=== PATIENT | male | born 1975 | race African-American/Black ===

== ENCOUNTER 2020-09-05 03:37 | Emergency (ER) | payer OTHER, SELFPAY ==
--- NOTE | 2020-09-05 03:47 | ECG_ITS ---
Test Reason : SUB ABUSE Blood Pressure : / mmHG Vent. Rate : 071 BPM Atrial Rate : 071 BPM P-R Int : 120 ms QRS Dur : 090 ms QT Int : 402 ms P-R-T Axes : 049 013 029 degrees QTc Int : 436 ms Normal sinus rhythm Nonspecific T wave abnormality Abnormal ECG No previous ECGs available Referred By: Carol Lynch Electronically Signed By:KEVIN COLES MD
[2020-09-05 03:48] VITALS: BP 181/82; PULSE 76; RESP 20; TEMP 37.3; O2SAT 98; BMI 45.6
--- NOTE | 2020-09-05 04:01 | ED_ITS ---
HPI - General Adult General Chief complaint: ETOH/Substance Use Stated complaint: over medicated Time Seen by Provider: 09/05/20 03:47 Source: patient Mode of arrival: ambulatory History of Present Illness HPI narrative: 44-year-old male who presents with having sniffed 5-10 bags of heroin/day for 2 weeks as well as consuming alcohol and smoking [place] dust. Patient presents with concerns after having drank 3-1/2 caps of NyQuil as well as 3 large swallows. Otherwise, he denies any shortness of breath, chest pain/palpitations, dizziness or headaches. Related Data Allergies Allergy/AdvReac Type Severity Reaction Status Date / Time No Known Allergies Allergy Verified 09/05/20 03:55 [No Known Allergies*] Review of Systems Review of Systems: Pertinent positives and negatives as stated in HPI and 10 point review of systems is otherwise negative. PMFSH Past Medical History Source: nursing notes reviewed Medical History Alcohol abuse Hypertension Substance abuse Social History Social History Advance Directives: No Advance Directives Information Provided: No Physical Exam Vital Signs: Vital Signs: Last Vital Signs Temp 99.2 F 09/05/20 03:48 Pulse 76 09/05/20 03:48 Resp 20 09/05/20 03:48 BP 181/82 H 09/05/20 03:48 Pulse Ox 98 09/05/20 03:48 Body Mass Index 45.6 VITAL SIGNS: Reviewed. GENERAL: Well developed, well nourished, in no acute distress. HEAD: Normocephalic/atraumatic, EYES: PERRLA, EOMI OROPHARYNX: no oral lesions noted, posterior pharynx clear NECK: Supple, no adenopathy LUNGS: Normal breath sounds. No adventitious sounds or accessory muscle use. SpO2<98> CARDIOVASCULAR: Regular rate and rhythm without noted murmurs, no JVD or lower extremity edema. ABDOMEN: Soft, non-tender, non-distended with bowel sounds. NEUROLOGIC: Alert and oriented x 4. Strength and sensation to light touch were grossly intact x 4, no tremor. Course Course Course Narrative: This is a 44-year-old male with history and clinical presentat ion polysubstance use and will rule out acetaminophen toxicity given unknown amount of NyQuil consumed. 0447: Patient is requesting to leave and understands that the lab work has not come back knee and that due to the amount Tylenol that he ingested with a NyQuil it could cause liver complications with and he was encouraged to return if he has any worsening of symptoms as he continues to insist on leaving prior to that were being completed. All risks and benefits were discussed with him and he acknowledges them. Medical Decision Making Lab Data Result diagrams: 09/05/20 04:06 09/05/20 04:06 ECG Data Attestation: I personally reviewed and interpreted this ECG as follows: Prior ECG tracings: not available for review Interpretation: Normal sinus rhythm, HR-71, no acute evidence of ischemia, WI/QRS/QTC are within normal limits. Discharge Plan Discharge Clinical Impression: Substance abuse Accidental acetaminophen overdose Qualifiers: Encounter type: initial encounter Qualified Code(s): T39.1X1A - Poisoning by 4- Aminophenol derivatives, accidental (unintentional), initial encounter Patient Disposition: Left Against Medical Advice Additional Instructions: Do not hesitate to return to the emergency department should you develop any shortness of breath, chest pain, abdominal pain. Stand Alone Forms: Against Medical Advice
--- NOTE | 2020-09-05 04:23 | PC.NURSE ---
at bedside for primary eval.
[2020-09-05 04:28] LABS: Basophils Percent Auto 0.4 % (0-2); Eosinophils Absolute Auto 0.2 X10*3/uL (0.0-0.4); Eosinophils Percent Auto 2.6 % (0-4); Hematocrit 40.7 % (42-52); Hemoglobin 12.6 g/dl (14.0-18.0); Imm Gran Abs Auto 0.02 X10*3/uL (0.00-0.03); Imm Gran Pct Auto 0.2 % (0.0-0.4); Lymphocytes Absolute Auto 2.4 X10*3/uL (1.2-4.9); Lymphocytes Percent Auto 26.5 % (20-40); MANUAL DIFF FLAG NO; Mean Corpuscular Hemoglobin 26.1 pg (27.0-33.0); Mean Corpuscular Volume 84.3 fL (80-98); Mean Platelet Volume 10.9 fL (9.4-12.4); Monocytes Absolute Auto 0.8 X10*3/uL (0.1-1.2); Monocytes Percent Auto 8.8 % (2-11); Neutrophils Absolute Auto 5.5 X10*3/uL (2.0-8.3); Neutrophils Percent Auto 61.5 % (45-73); Platelet Count 240 X10*3/uL (160-400); Red Blood Count 4.83 X10*6/uL (4.60-5.80)
--- NOTE | 2020-09-05 04:47 | PC.NURSE ---
This RN at bedside to obtain urine sample. Pt states he is unable to provide urine sample at this time. Pt found to be on the phone with his suzie mother. Pt yelling and crying. After the conversation ended, pt requesting to leave immediately. This RN explaining to pt that his labs aren't back. Per pt, I need to leave, I need to leave right now. MD aware. Pt agreeable to signing out AMA.
[2020-09-05 04:48] LABS: Ethanol < 10 mg/dL
[2020-09-05 04:52] LABS: Acetaminophen LAB 3 mcg/mL (<30); Alanine Aminotransferase 18 U/L (0-40); Albumin Level 4.3 g/dL (3.5-5.0); Alkaline Phosphatase 86 U/L (39-117); Anion Gap 14 (12-20); Aspartate Amino Transferase 23 U/L (5-37); Bilirubin Total 0.3 mg/dL (0.0-1.0); Blood Urea Nitrogen 17 mg/dL (9-16); Calcium 8.8 mg/dL (8.4-10.2); Carbon Dioxide 27 mmol/L (22-29); Chloride 104 mmol/L (96-108); Creatinine Clr Calc Pharmacy 132.8; Estimated Glomerular Filt Rate > 60; Glucose Random 114 mg/dL (60-115); Potassium 3.8 mmol/L (3.3-5.1); Salicylate < 5.0 mg/dL (15-30); Sodium 141 mmol/L (135-145); Total Protein 7.7 g/dL (6.5-8.0)
--- NOTE | 2020-09-05 04:57 | PC.NURSE ---
Pt provided with AMA DC paperwork. Pt states tell me where to sign. As pt was being assisted out of ED, pt stopping at the charge desk explaining that he just wants to be downstairs waiting for results. subway train operator and security at bedside explaining to pt that he needs to wait in his room for results and that he can't be treated medically from the parking lot. Pt states But I'm just a human being. Pt again offered medical treatment provided he was agreeable to waiting in room, pt refused and ambulated out to Triage with security. and subway train operator signing AMA paperwork.
== END 2020-09-05 05:02 | disposition left against medical advice (07) ==
PROVIDERS: Emergency Provider Student in an Organized Health Care Education/Training Program
DX: F11.10 Opioid abuse, uncomplicated (principal); F16.10 Hallucinogen abuse, uncomplicated; T54.0X1A Toxic effect of phenol and phenol homologues, accidental (unintentional), initial encounter; Y92.009 Unspecified place in unspecified non-institutional (private) residence as the place of occurrence of the external cause; Z79.899 Other long term (current) drug therapy; Z71.51 Drug abuse counseling and surveillance of drug abuser
CPT/HCPCS: 36415; 80053; 80143; 80179; 80320; 85025; 93005; 99283